=== PATIENT | female | born 1980 | race Caucasian/White ===

== ENCOUNTER 2021-03-12 10:43 | Emergency (ER) | payer OTHER ==
[2021-03-12 11:34] LABS: #Eosinphils 0.2 10x3/uL (0.0-0.5); #Monocytes 0.4 10x3/uL (0.0-1.1); #Neutrophils 5.1 10x3/uL (1.5-8.4); %Basophils 0.3 % (0.0-2.0); %Eosinophils 2.9 % (0.0-6.0); %Lymphocytes 24.4 % (18.0-47.0); %Monocytes 5.4 % (0.0-10.0); %Neutrophils 66.7 % (40.0-75.0); Mean Corpuscular HGB CONC 32.2 g/dL (32.0-36.0); Mean Corpuscular Hemoglobin 27.9 pg (27.0-33.0); Mean Corpuscular Volume 86.8 fl (81.6-98.3); Platelet Count 237 10x3/uL (150-450); RBC Distribution Width 13.2 % (11.5-14.5); Red Blood Cell (RBC) Count 3.94 10x6/uL (3.90-5.03); White Blood Cell (WBC) Count 7.7 10x3/uL (3.5-10.5)
[2021-03-12 11:48] LABS: ALT (SGPT) 17 U/L (8-55); AST (SGOT) 19 U/L (5-34); Albumin 4.3 g/dL (3.5-5.0); Alkaline Phosphatase 45 U/L (40-110); Anion Gap 10 mmol/L (10-20); BUN (Urea Nitrogen) 12 mg/dL (7.0-18.7); Bilirubin, Total 0.3 mg/dL (0.2-1.2); Calc. Creatinine Clearance 0 mL/min (70-130); Calcium 9.3 mg/dL (7.8-10.44); Carbon Dioxide 25 mmol/L (22-29); Chloride 110 mmol/L (98-107); Globulin 2.6 g/dL (2.4-3.5); Glucose 94 mg/dL (70-105); Potassium 3.8 mmol/L (3.5-5.1); Protein, Total 6.9 g/dL (6.0-8.3); Sodium 141 mmol/L (136-145)
[2021-03-12] MEDS ORDERED: Ondansetron PF 4 MG/2 ML Vial ONE ×2 (15:10→18:11)
[2021-03-12 15:11] LABS: BHCG - Serum Negative (NEGATIVE); Pregs Control Background? CLEAR/WHITE (CLR/WHITE); Pregs Control Bar Appear? YES (CONTROL BAR)
[2021-03-12] MEDS ORDERED: Ketorolac Tromethamine 30 MG/ML VIAL ONE (15:56)
[2021-03-12 16:28] LABS: Bilirubin Neg (Negative); Blood, Urine 10 (Negative); Clarity Clear (Clear); Glucose, Urine (Dipstick) Normal (Negative); Ketone, Urine Negative (Negative); Leukocyte 25 (Negative); Nitrite Negative (Negative); Protein, Urine (Dipstick) Negative (Neg-Trace); Urobilinogen Normal mg/dL (Less than 2)
[2021-03-12 16:35] LABS: RBC/HPF 0-3 HPF (0-3)
[2021-03-12 16:36] LABS: Bacteria/HPF 1+ HPF (None Seen); Mucous/LPF 4+ LPF (<2+); Transitional Epithelial 0-3 HPF (None Seen)
[2021-03-12 16:37] LABS: Calcium Oxalate Crystals Rare HPF (None Seen)
[2021-03-12] MEDS ORDERED: Morphine 4 MG/ML VIAL ONE (18:11)
== END 2021-03-12 19:29 | disposition home or self-care (01) ==
LOC: CSHERS 10:43
DX: N20.0 Calculus of kidney (principal); I48.91 Unspecified atrial fibrillation; I45.10 Unspecified right bundle-branch block; R19.7 Diarrhea, unspecified; I10 Essential (primary) hypertension; E28.2 Polycystic ovarian syndrome; B20 Human immunodeficiency virus [HIV] disease
CPT/HCPCS: 36415; 74177; 80053; 81003; 81015; 83690; 84703; 85025; 96372; 96374; 96375; 96376; J0500; J1885; J2270; J2405

== ENCOUNTER 2022-09-05 13:35 | Outpatient (CLI) | payer OTHER | END 2022-09-05 13:36 | disposition home or self-care (01) | LOC: CSHMAMMO 13:35 | PROVIDERS: ATTEND Family Medicine | DX: N64.4 Mastodynia (principal) | CPT/HCPCS: 77066; G0279 ==

== ENCOUNTER 2022-12-30 04:58 | Emergency (ER) | payer OTHER ==
[2022-12-30] MEDS ORDERED: Ketorolac Tromethamine 30 MG/ML VIAL ONE (06:08)
[2022-12-30 06:14] LABS: Bilirubin 6 (Negative); Blood, Urine 250 (Negative); Clarity Cloudy (Clear); Glucose, Urine (Dipstick) Normal (Negative); Ketone, Urine Negative (Negative); Leukocyte 100 (Negative); Nitrite Positive (Negative); Protein, Urine (Dipstick) 100 mg/dl (Neg-Trace); Specific Gravity, Urine 1.025 (1.005-1.030)
[2022-12-30] MEDS ORDERED: Ondansetron ODT 4 MG TAB ONE (06:27)
[2022-12-30 06:29] LABS: CAUTI Indications for Culture Pelvic or flank pain; WBC/HPF Greater Than 50 HPF (0-3)
[2022-12-30 06:32] LABS: Squamous Epithelial 0-3 HPF (0-3)
[2022-12-30 06:34] LABS: Bacteria/HPF 1+ HPF (None Seen)
[2022-12-30 06:35] LABS: RBC/HPF Greater than 50 HPF (0-3)
[2022-12-30 06:36] LABS: Urine Culture Reflex Yes Yes
[2022-12-30] MEDS ORDERED: Morphine 4 MG/ML VIAL ONE (06:57)
[2022-12-30 07:31] LABS: #Eosinphils 0.2 10x3/uL (0.0-0.5); #Monocytes 0.5 10x3/uL (0.0-1.1); #Neutrophils 4.7 10x3/uL (1.5-8.4); %Basophils 0.4 % (0.0-2.0); %Eosinophils 1.9 % (0.0-6.0); %Lymphocytes 31.1 % (18.0-47.0); %Monocytes 6.1 % (0.0-10.0); Hematocrit 36.5 % (34.9-44.5); Hemoglobin 12.6 g/dL (12.0-15.5); Mean Corpuscular HGB CONC 34.5 g/dL (32.0-36.0); Mean Corpuscular Hemoglobin 32.6 pg (27.0-33.0); Mean Corpuscular Volume 94.6 fl (81.6-98.3); Mean Platelet Volume 9.2 fl (7.4-10.4); Platelet Count 254 10x3/uL (150-450); RBC Distribution Width 11.8 % (11.5-14.5); Red Blood Cell (RBC) Count 3.86 10x6/uL (3.90-5.03); White Blood Cell (WBC) Count 7.9 10x3/uL (3.5-10.5)
[2022-12-30 07:41] LABS: ALT (SGPT) 24 U/L (8-55); AST (SGOT) 19 U/L (5-34); Albumin 4.3 g/dL (3.5-5.0); Alkaline Phosphatase 40 U/L (40-110); Anion Gap 15 mmol/L (10-20); BUN (Urea Nitrogen) 12 mg/dL (7.0-18.7); Bilirubin, Total 0.5 mg/dL (0.2-1.2); Calc. Creatinine Clearance 0 mL/min (70-130); Calcium 9.5 mg/dL (7.8-10.44); Carbon Dioxide 22 mmol/L (22-29); Chloride 109 mmol/L (98-107); Estimated GFR 104; Globulin 2.3 g/dL (2.4-3.5); Glucose 96 mg/dL (70-105); Potassium 3.3 mmol/L (3.5-5.1); Protein, Total 6.6 g/dL (6.0-8.3); Sodium 143 mmol/L (136-145)
[2022-12-30] MEDS ORDERED: cefTRIAXone (ROCEPHIN) 1 GM VIAL ONE (08:07)
== END 2022-12-30 08:17 | disposition home or self-care (01) ==
LOC: CSHERS 04:58
DX: N10 Acute pyelonephritis (principal); N39.0 Urinary tract infection, site not specified; N20.0 Calculus of kidney; I10 Essential (primary) hypertension; F17.290 Nicotine dependence, other tobacco product, uncomplicated
CPT/HCPCS: 74176; 80053; 81001; 85025; 87086; 96361; 96374; 96375; J0696; J1885; J2270; Q0162

== ENCOUNTER 2023-07-16 07:36 | Emergency (ER) | payer OTHER ==
[2023-07-16] MEDS ORDERED: methylPREDNISolone Sod Succ/PF 125 MG/2 ML VIAL ONE (08:23)
== END 2023-07-16 08:29 | disposition home or self-care (01) ==
LOC: CSHERS 07:36
DX: R05.1 Acute cough (principal); G43.909 Migraine, unspecified, not intractable, without status migrainosus; I10 Essential (primary) hypertension; F17.290 Nicotine dependence, other tobacco product, uncomplicated; F17.200 Nicotine dependence, unspecified, uncomplicated
CPT/HCPCS: 96372; 99283; J2930

== ENCOUNTER 2024-01-21 19:30 | Emergency (ER) | payer OTHER ==
[2024-01-21] MEDS ORDERED: Ketorolac Tromethamine 30 MG (1 mL) VIAL ONE (19:59)
[2024-01-21] MEDS ORDERED: Diazepam 5 MG TAB ONE (19:59)
== END 2024-01-21 20:20 | disposition home or self-care (01) ==
LOC: CSHERS 19:30
DX: S39.012A Strain of muscle, fascia and tendon of lower back, initial encounter (principal); M54.16 Radiculopathy, lumbar region; X50.1XXA Overexertion from prolonged static or awkward postures, initial encounter
CPT/HCPCS: 96372; 99283; J1885

== ENCOUNTER 2024-11-21 13:38 | Outpatient (CLI) | payer BC | END 2024-11-21 13:39 | disposition home or self-care (01) | LOC: CSHCT 13:38 | PROVIDERS: ATTEND Family Medicine | DX: N20.0 Calculus of kidney (principal) | CPT/HCPCS: 74176 ==

== ENCOUNTER 2024-12-06 08:41 | Outpatient (CLI) | payer BC | END 2024-12-06 08:42 | disposition home or self-care (01) | LOC: CSHMAMMO 08:41 | PROVIDERS: ATTEND Family Medicine | DX: N63.11 Unspecified lump in the right breast, upper outer quadrant (principal) | CPT/HCPCS: G0279 ==

== ENCOUNTER 2024-12-06 11:01 | Outpatient (CLI) | payer BC | END 2024-12-06 11:02 | disposition home or self-care (01) | LOC: CSHULT 11:01 | PROVIDERS: ATTEND Urology | DX: N20.0 Calculus of kidney (principal) | CPT/HCPCS: 76770 ==

== ENCOUNTER 2025-01-28 11:05 | Emergency (ER) | payer BC ==
[2025-01-28 12:07] LABS: #Basophils Less than 0.03 10x3/uL (0.0-0.2); #Eosinophils 0.15 10x3/uL (0.0-0.5); #Monocytes 0.40 10x3/uL (0.0-1.1); #Neutrophils 3.26 10x3/uL (1.5-8.4); %Basophils 0.2 % (0.0-2.0); %Eosinophils 2.8 % (0.0-6.0); %Lymphocytes 29.6 % (18.0-47.0); %Monocytes 7.4 % (0.0-10.0); %Neutrophils 59.8 % (40.0-75.0); Hematocrit 33.8 % (34.9-44.5); Hemoglobin 11.5 g/dL (12.0-15.5); Mean Corpuscular Hemoglobin 30.1 pg (27.0-33.0); Mean Corpuscular Volume 88.5 fL (81.6-98.3); Platelet Count 238 10x3/uL (150-450); Red Blood Cell (RBC) Count 3.82 10x6/uL (3.90-5.03); White Blood Cell (WBC) Count 5.44 10x3/uL (3.5-10.5)
[2025-01-28 12:17] LABS: BHCG - Serum Negative (NEGATIVE); Pregs Control Background? CLEAR/WHITE (CLR/WHITE); Pregs Control Bar Appear? YES (CONTROL BAR)
[2025-01-28 12:25] LABS: ALT (SGPT) 9 U/L (Less than 34); AST (SGOT) 19 U/L (11-34); Albumin 3.9 g/dL (3.1-4.5); Alkaline Phosphatase 32 U/L (40-110); Anion Gap 11 mmol/L (10-20); BUN (Urea Nitrogen) 13 mg/dL (7.0-18.7); Bilirubin, Total 0.3 mg/dL (0.3-1.2); Calc. Creatinine Clearance 0 mL/min (70-130); Calcium 8.8 mg/dL (7.8-10.44); Carbon Dioxide 23 mmol/L (22-29); Chloride 110 mmol/L (98-107); Globulin 2.2 g/dL (2.4-3.5); Glucose 99 mg/dL (70-105); Lipase 25 U/L (8-78); Magnesium 2.0 mg/dL (1.6-2.6); Potassium 3.7 mmol/L (3.5-5.1); Sodium 140 mmol/L (136-145)
[2025-01-28 12:28] LABS: Glucose, Urine (Dipstick) Normal (Negative); Leukocyte Negative (Negative); Protein, Urine (Dipstick) Negative (Neg-Trace); Specific Gravity, Urine 1.015 (1.005-1.030)
[2025-01-28 12:35] LABS: Bacteria/HPF 2+ HPF (None Seen); CAUTI Indications for Culture Pelvic or flank pain; RBC/HPF None Seen HPF (0-3); WBC/HPF 0-3 HPF (0-3)
[2025-01-28 12:36] LABS: Urine Culture Reflex No No
== END 2025-01-28 16:01 | disposition home or self-care (01) ==
LOC: CSHERS 11:05
DX: R19.7 Diarrhea, unspecified (principal); I10 Essential (primary) hypertension; E78.70 Disorder of bile acid and cholesterol metabolism, unspecified; F17.290 Nicotine dependence, other tobacco product, uncomplicated
CPT/HCPCS: 36415; 80053; 81001; 83690; 83735; 84703; 85025; 96372; 96374